=== PATIENT | female | born 1965 | race Hispanic/Latino ===

== ENCOUNTER 2017-11-29 08:32 | Outpatient (CLI) | payer OTHER | END 2017-11-29 08:33 | disposition home or self-care (01) | LOC: BICMAMMO 08:32 | PROVIDERS: ATTEND Family Medicine | DX: Z12.31 Encounter for screening mammogram for malignant neoplasm of breast (principal); Z13.820 Encounter for screening for osteoporosis; R92.1 Mammographic calcification found on diagnostic imaging of breast; Z80.3 Family history of malignant neoplasm of breast | CPT/HCPCS: 77063; 77067; 77080 ==

== ENCOUNTER 2023-03-30 08:32 | Outpatient (CLI) | payer OTHER | END 2023-03-30 08:33 | disposition home or self-care (01) | LOC: BICMAMMO 08:32 | PROVIDERS: ATTEND Physician Assistant | DX: N64.4 Mastodynia (principal); N64.59 Other signs and symptoms in breast | CPT/HCPCS: 77066; G0279 ==

== ENCOUNTER → 2023-04-07 | Day surgery (SDC) | payer OTHER | LOC: BICULT 12:22 | PROVIDERS: ATTEND Physician Assistant | PROC: 0H95XZX Drainage of Chest Skin, External Approach, Diagnostic (ICD-10-PCS; principal; 2023-04-07) | DX: C50.811 Malignant neoplasm of overlapping sites of right female breast (principal); N63.15 Unspecified lump in the right breast, overlapping quadrants; R92.8 Other abnormal and inconclusive findings on diagnostic imaging of breast | CPT/HCPCS: 19083; 38505; 88305; 88342 ==

== ENCOUNTER 2023-04-24 12:33 | Outpatient (CLI) | payer OTHER | END 2023-04-24 12:34 | disposition home or self-care (01) | LOC: ULT 12:33 | PROVIDERS: ATTEND Internal Medicine | DX: Z51.11 Encounter for antineoplastic chemotherapy (principal); C50.411 Malignant neoplasm of upper-outer quadrant of right female breast; I08.1 Rheumatic disorders of both mitral and tricuspid valves | CPT/HCPCS: 93306 ==

== ENCOUNTER 2023-05-01 08:33 | Outpatient (CLI) | payer OTHER ==
[2023-05-01] MEDS ORDERED: Iopamidol 370 76% 100 ML VIAL ONE (14:39)
== END 2023-05-01 08:34 | disposition home or self-care (01) ==
LOC: NM 08:33
PROVIDERS: ATTEND Internal Medicine
DX: C50.411 Malignant neoplasm of upper-outer quadrant of right female breast (principal); C50.611 Malignant neoplasm of axillary tail of right female breast; R59.0 Localized enlarged lymph nodes
CPT/HCPCS: 71260; 74177; 78306; A9503

== ENCOUNTER 2023-07-29 17:36 | Inpatient (IN) | payer OTHER ==
[~2023-07-29 17:36] MED LIST: Iopamidol-370 76% 500 ML MDV (1 ML CHARGE) ONE
[2023-07-29 18:30] LABS: Hematocrit 35.6 % (36.0-47.0); Hemoglobin 12.1 g/dL (12.0-16.0); Manual Diff?? YES; Mean Corpuscular Hemoglobin 33.3 pg (27.0-31.0); Mean Corpuscular Volume 98.1 fl (78.0-98.0); Mean Platelet Volume 11.9 fL (7.4-10.4); RBC Distribution Width 13.8 % (11.5-14.5); Red Blood Cell (RBC) Count 3.63 mill/uL (4.20-5.40); White Blood Cell (WBC) Count 13.3 10x3/uL (4.8-10.8)
[2023-07-29 18:34] LABS: Delete Auto Diff?? YES; Platelet Count 107 10x3/uL (130-400)
[2023-07-29 18:47] LABS: PTT 25.2 sec (22.9-36.1); Prothrombin Time 13.5 sec (12.0-14.7)
[2023-07-29 18:59] LABS: Troponin I Less than 0.010 ng/mL (< 0.028)
[2023-07-29 19:01] LABS: ALT (SGPT) 20 U/L (8-55); AST (SGOT) 19 U/L (5-34); Albumin 4.2 g/dL (3.5-5.0); Alkaline Phosphatase 135 U/L (40-110); Anion Gap 12 mmol/L (10-20); BUN (Urea Nitrogen) 14 mg/dL (9.8-20.1); Bilirubin, Total 0.7 mg/dL (0.2-1.2); Calc. Creatinine Clearance 0 mL/min (70-130); Calcium 9.4 mg/dL (7.8-10.44); Carbon Dioxide 24 mmol/L (22-29); Chloride 101 mmol/L (98-107); Estimated GFR 83; Globulin 3.6 g/dL (2.4-3.5); Glucose 234 mg/dL (70-105); Magnesium 1.4 mg/dL (1.6-2.6); Potassium 3.3 mmol/L (3.5-5.1); Protein, Total 7.8 g/dL (6.0-8.3); Sodium 134 mmol/L (136-145)
[2023-07-29 19:10] LABS: Band 19 % (5-11); CellaVision Operator ID LAB.MJL; Lymphocytes 5 % (21-51); Metamyelocyte 10 % (0-0); Monocytes 1 % (0-10); Myelocyte 3 % (0-0); Neutrophil 63 % (42-75); Nucleated RBC (Manual Ct) 1 % (0); Platelet Adequacy Comment Platelets Decreased; Tear Drops SLIGHT = 2-5 cells HPF (0-1); Total Cell Count 102
[2023-07-29 19:33] LABS: SARS-CoV-2 NAA Rapid Test Not Detected (NotDetected)
[2023-07-29] MEDS ORDERED: Vancomycin 1 GM/200 ML (FROZEN) BAG ONE (20:18)
[2023-07-29] MEDS ORDERED: Cefepime 2 GM VIAL ONE (20:18)
[2023-07-29] MEDS ORDERED: Ondansetron PF 4 MG/2 ML Vial IVP PRN (21:30)
[2023-07-29] MEDS ORDERED: Acetaminophen 325 MG TAB PO PRN (21:30)
[2023-07-29 21:39] LABS: Lactic Acid 2.2 mmol/L (0.5-2.2)
[2023-07-29] MEDS ORDERED: Dextrose 50% Abboject 50 ML SYRINGE SLOW IVP PRN (21:41)
[2023-07-29] MEDS ORDERED: Glucagon 1 MG/ML KIT IM PRN (21:41)
[2023-07-29] MEDS ORDERED: Dextrose 5% in Water 1,000 ML IV PRN (21:41)
[2023-07-29] MEDS ORDERED: HumaLOG 300 UNITS/3 ML VIAL SC PRN ×2 (21:41)
[2023-07-29 21:45] LABS: Bilirubin Negative (Negative); Blood, Urine Negative (Negative); CAUTI Indications for Culture Dysuria,urgency,freq; Clarity Clear (Clear); Glucose, Urine (Dipstick) Greater than 1000 mg/dL (Negative); Ketone, Urine Negative (Negative); Leukocyte 75 Leu/uL (Negative); Nitrite Negative (Negative); Protein, Urine (Dipstick) Negative (Neg-Trace); RBC/HPF 0-3 HPF (0-3); Specific Gravity, Urine 1.034 (1.002-1.036); Squamous Epithelial 0-3 HPF (0-3); Urobilinogen Normal mg/dL (Less than 2); WBC/HPF 21-50 HPF (0-3)
[2023-07-29] MEDS ORDERED: Sodium Chloride 0.9% 1,000 ML IV SCH (21:45)
[2023-07-29 21:46] LABS: Bacteria/HPF 1+ HPF (None Seen)
[2023-07-29 21:47] LABS: Urine Culture Reflex Yes Yes
[2023-07-29] MEDS ORDERED: Magnesium 2 GM/50 ML BAG (IN WATER) ONE (21:48)
[2023-07-29] MEDS ORDERED: Potassium Chloride 20 MEQ TAB ONE (21:48)
[2023-07-30 01:51] VITALS: BMI 28.0
[2023-07-30 05:20] LABS: Hematocrit 29.1 % (36.0-47.0); Hemoglobin 9.7 g/dL (12.0-16.0); Manual Diff?? YES; Mean Corpuscular HGB CONC 33.3 g/dL (32.0-36.0); Mean Corpuscular Hemoglobin 33.4 pg (27.0-31.0); Mean Corpuscular Volume 100.3 fl (78.0-98.0); RBC Distribution Width 13.9 % (11.5-14.5); White Blood Cell (WBC) Count 7.2 10x3/uL (4.8-10.8)
[2023-07-30 05:24] LABS: Delete Auto Diff?? YES; Platelet Count 87 10x3/uL (130-400)
[2023-07-30 05:45] LABS: Anion Gap 8 mmol/L (10-20); BUN (Urea Nitrogen) 9 mg/dL (9.8-20.1); Calc. Creatinine Clearance 99 mL/min (70-130); Calcium 8.7 mg/dL (7.8-10.44); Carbon Dioxide 26 mmol/L (22-29); Chloride 105 mmol/L (98-107); Estimated GFR 102; Glucose 136 mg/dL (70-105); Magnesium 1.8 mg/dL (1.6-2.6); Potassium 3.9 mmol/L (3.5-5.1); Sodium 135 mmol/L (136-145)
[2023-07-30 06:25] LABS: Band 21 % (5-11); CellaVision Operator ID lab.sh2; Eosinophils 1 % (0-10); Large Platelets 2.8 % (0-5); Lymphocytes 18 % (21-51); Macrocytosis SLIGHT = 6-15 cells HPF (0-5); Neutrophil 60 % (42-75); Platelet Adequacy Comment Platelets Decreased; Polychromasia SLIGHT = 2-3 cells HPF (0-2); Smudge Cells 20.4 %; Tear Drops SLIGHT = 2-5 cells HPF (0-1); Total Cell Count 108
[2023-07-30] MEDS ORDERED: Cefepime 2 GM in Sodium Chloride 0.9% 100 ML IVPB SCH (09:00)
[2023-07-30 11:14] VITALS: BP 103/64; TEMP 96.7
[2023-08-02] MEDS ORDERED: FLU VACC QS2023-24(6MOS UP)/PF 60 MCG/0.5 ML SYRINGE IM ONE (09:00)
== END 2023-07-30 14:00 | disposition home or self-care (01) | DRG 872 ==
LOC: ERS 17:36 → 2NO 21:30
PROVIDERS: ADMIT Internal Medicine; ATTEND Internal Medicine
DX: A41.9 Sepsis, unspecified organism (principal); I50.22 Chronic systolic (congestive) heart failure; N30.00 Acute cystitis without hematuria; E87.20 Acidosis, unspecified; C50.911 Malignant neoplasm of unspecified site of right female breast; E11.9 Type 2 diabetes mellitus without complications; I11.0 Hypertensive heart disease with heart failure; E83.42 Hypomagnesemia; E87.6 Hypokalemia; D69.6 Thrombocytopenia, unspecified; E78.5 Hyperlipidemia, unspecified; Z79.899 Other long term (current) drug therapy; Z79.82 Long term (current) use of aspirin; Z79.84 Long term (current) use of oral hypoglycemic drugs; Z98.890 Other specified postprocedural states; Z83.3 Family history of diabetes mellitus; Z11.52 Encounter for screening for COVID-19
CPT/HCPCS: 36415; 36416; 71045; 71275; 80048; 80053; 81001; 83605; 83735; 83880; 84443; 84484; 85025; 85610; 85730; 87040; 87086; 93005; 96365; 96375; J0692; J3370-JW; J3475; J3490; J7050; Q9967

== ENCOUNTER 2024-01-10 12:24 | Outpatient (CLI) | payer OTHER | END 2024-01-10 12:25 | disposition home or self-care (01) | LOC: ULT 12:24 | PROVIDERS: ATTEND Internal Medicine | DX: Z51.11 Encounter for antineoplastic chemotherapy (principal); C50.411 Malignant neoplasm of upper-outer quadrant of right female breast; I42.7 Cardiomyopathy due to drug and external agent; I08.1 Rheumatic disorders of both mitral and tricuspid valves; Z79.899 Other long term (current) drug therapy | CPT/HCPCS: 93306 ==